=== PATIENT | male | born 1970 | race Caucasian/White ===

== ENCOUNTER 2023-09-14 10:07 | Outpatient (AMB) | payer OTHER, SELFPAY ==
--- NOTE | 2023-09-14 11:45 | A.OFFVIS_ITS ---
Intake Intake Visit Reasons: hx prostate cancer/transfer of care Intake Note: NEW Patient presents today to established treatment for history of prostate cancer Meds- None Allergies to Antibiotic- No Known Allergies Blood Thinner- None Post Void Residual:17 Quoter Required: No Accompanied by: Self / Same As Patient Allergies Beta-Blockers (Beta-Adrenergic Bloc [BETA-BLOCKERS (BETA-ADRENERGIC BLOC] Adverse Reaction (Unknown, Verified 09/14/23 11:57) STOPPED MY HEART beta fercho Allergy (Unknown, Uncoded 09/14/23 11:57) Unknown HPI HPI Comments History of Present Illness Details John is a 53-year-old male who was previously diagnosed with prostate cancer in February 2022 by [facility]. He is transferring his care to [facility]. He states he has a family history of prostate cancer in his father. I reviewed urology notes from the [facility] u[facility]. The patient had a PSA of 3.3 initially, the last PSA noted was 10/20/2022---3.8 ng/mL. The patient had an MRI of the prostate 01/07/2022. I have reviewed the report.-impression suspicious 1 cm lesion within right posterior medial peripheral zone at the mid gland apex PI-RADS 2.1, category for high clinically significant cancer is likely to be present prostate volume 23 mL He had MRI fusion guided prostate biopsy on 03/13/2022: Pathology results reviewed--prostate left medial apex [place] score 6 3+ 6, grade group 1 tumor involves 3% of tissue, prostate target right posterior apex adenocarcinoma [place] score 6 3+3 grade group 1, tumor involves 5% of tissue submitted. Prostate right medial base right medial mid right medial apex right lateral apex right lateral mid right lateral apex left medial base left medial mid core biopsies benign prostate tissue. Prostate, left lateral base left lateral mid left lateral apex--benign prostate tissue. He was placed on active surveillance. The patient states he did not have a follow-up scheduled. Last PSA noted was 10/20/2022 3.8 ng/mL Plan discussed to repeat MRI and PSA. The patient was also evaluated for balanitis and phimosis and underwent circumcision on 12/01/2022-the pathology was documented to be consistent with patchy superficial lymphocytic inflammatory infiltrates with slight fibrosis. 72 minutes spent including review of ur ology notes in detail due to documentation prostate cancer that were sent from [facility] and in review of records pertaining to this visit and including [id number] discussion with the patient and documentation of this visit. 09/14/2023-Plan PSA today MRI prostate PFSH Medical History (Updated 09/29/23 @ 09:41 by EVE Archuleta) Phimosis of penis Type 2 diabetes mellitus Sleep apnea Major depression Heart disease Anxiety Hx of essential hypertension Male circumcision Surgical History (Updated 09/29/23 @ 09:37 by EVE Archuleta) History of lumbar laminectomy Hx of arthroscopic knee surgery Hx of heart surgery Hx of cardiac cath Family History (Updated 09/29/23 @ 09:43 by EVE Archuleta) Father Family history of prostate cancer Mother Cancer Family history of prostate cancer Social History (Updated 09/29/23 @ 09:39 by EVE Archuleta) Alcohol intake: current Alcohol intake frequency: does not drink Patient Tobacco Use Status: Never used Tobacco Review of Systems Const All systems reviewed & are unremarkable except as noted in HPI and below Reports no additional complaints Eyes Reports no additional complaints ENT Reports no additional complaints Card Denies dyspnea Resp Denies cough and Denies dyspnea GI Reports no additional complaints Musc Reports no additional complaints Skin/Breast Denies rash and Denies unusual bruising Neuro Reports no additional complaints Psych Reports no additional complaints Endo Reports no additional complaints Joby/Lymph Reports no additional complaints Aller/Immun Reports no additional complaints Physical Exam Const General: healthy appearing, no acute distress and well developed Orientation/consciousness: patient oriented x3 HEENT Head: Yes normocephalic and Yes atraumatic Eyes Conjunctivae: conjunctivae normal Neck Neck: Yes normal visual inspection Chest Chest palpation & inspection: normal inspection of the chest Resp Effort & Inspection: normal respiratory effort Cardio Rate: regular rate GI Inspection: Yes normal to inspection Skin General skin exam: no rashes or lesions noted Neuro General: patient oriented x3 Extrem General: No pedal edema Psych Appearance: grossly normal Affect: normal affect Results AMB Urinalysis, Automated UA Leukoctes 0 Bisi/uL Last Edit by Lashay Hutson PHARMACOVIGILANCE SCIENTIST on 09/14/23 12 :00 UA Nitrite Negative Last Edit by Lashay Hutson, [facility] on 09/14/23 12: 00 UA Urobilinogen 0.2 mg/dL Last Edit by Lashay Hutson PHARMACOVIGILANCE SCIENTIST on 4 12:00 UA Protein 0 mg/dL Last Edit by Lashay Hutson, [facility] on 09/14/23 12:00 UA pH 5.5 Last Edit by Lashay Hutson, [facility] on 09/14/23 12:00 UA Blood 0 Jose/uL Last Edit by Lashay Hutson, [facility] on 09/14/23 12:00 UA Specific [place] 1.020 Last Edit by Lashay Hutson, [employer]ILANCE SCIENTIST on 12:00 UA Ketone Negative Last Edit by Lashay Hutson [facility] on 09/14/23 12:0 0 UA Bilirubin 0 mg/dL Last Edit by Lashay Hutson [facility] on 09/14/23 12: 00 UA Glucose 1000 mg/dL Last Edit by Lashay Hutson [facility] on 09/14/23 12 :00 Results Reviewed Results Reviewed: Laboratory Last Values Urine pH (Auto) 5.5 09/14/23 11:59 Specific [place] (Auto) 1.020 09/14/23 11:59 Urine Protein (Auto) 0 mg/dL 09/14/23 11:59 Glucose (UA)(Auto) 1000 mg/dL 09/14/23 11:59 Urine Ketones (Auto) Negative 09/14/23 11:59 Urine Blood (Auto) 0 Jose/uL 09/14/23 11:59 Urine Nitrite (Auto) Negative 09/14/23 11:59 Urine Bilirubin (Auto) 0 mg/dL 09/14/23 11:59 Urine Urobilinogen (Auto) 0.2 mg/dL 09/14/23 11:59 Leukocyte Esterase (Auto) 0 Bisi/uL 09/14/23 11:59 Assessment & Plan Assessment & Plan (1) Prostate cancer genetic susceptibility: Code(s): Z15.03 - Genetic susceptibility to malignant neoplasm of prostate (2) Family history of prostate cancer: Code(s): Z80.42 - Family history of malignant neoplasm of prostate Plan PSA today MRI prostate Orders: Orders AMB Urinalysis Automated 09/14/23 R33.9 - Retention of urine, unspecified AMB Post Void Residual by ultrasound 09/14/23 R33.9 - Retention of urine, unspecified PSA,Total (Free>4and<10) 09/14/23 Z15.03 - Genetic susceptibility to malignant neoplasm of prostate MR pelvis w con 09/14/23 Z80.42 - Family history of malignant neoplasm of prostate, Z15.03 - Genetic susceptibility to malignant neoplasm of prostate Patient Instructions: The patient had an opportunity to ask questions regarding treatment plan. All questions were answered. Imaging, Laboratory studies and physical exam results were discussed and reviewed in detail. No major barriers to understanding were identified. The patient expressed understanding and agreement with the above treatment plan. The patient is aware they should contact our office by phone for worsening of their current condition or the appearance of new symptoms. Compliance is encouraged with any medications and followup testing that is ordered. It is a privilege to be allowed the opportunity to participate in the urologic care of your patient. If you have any questions or concerns regarding treatment for the above conditions please do not hesitate to contact me. The office telephone contact is [phone]. This note is constructed in part using voice recognition software. While every effort has been made to ensure accuracy museum assistant errors may have been included. Yours sincerely, Tino Mckeon MD Coding Level of Care Code New Pt Level 5 (12788) Diagnoses Prostate cancer genetic susceptibility Z15.03 Family history of prostate cancer Z80.42 Time Spent (min) 72
== END 2023-09-14 12:18 | disposition home or self-care (01) ==
PROVIDERS: PCP Internal Medicine; Visit Provider Urology
DX: C61 Malignant neoplasm of prostate (principal); Z80.42 Family history of malignant neoplasm of prostate
CPT/HCPCS: 99205

== ENCOUNTER → 2023-09-14 10:07 | Outpatient (BNVA) | payer OTHER, SELFPAY | PROVIDERS: PCP Internal Medicine; Visit Provider Urology | DX: Z15.03 Genetic susceptibility to malignant neoplasm of prostate (principal); C61 Malignant neoplasm of prostate; Z80.42 Family history of malignant neoplasm of prostate | CPT/HCPCS: 81003; 99202 ==

== ENCOUNTER 2023-10-29 09:10 | Outpatient (AMB) | payer OTHER, SELFPAY ==
--- NOTE | 2023-10-29 09:19 | A.OFFVIS_ITS ---
Intake Visit Reasons: 6w/MRI/PSA Intake Note: Patient presents today for a follow-up on Prostate MRI & PSA Results: Meds- None Allergies to Antibiotic- No Known Allergies Blood Thinner- None Post Void Residual: 22 mL Work Counselor Required: No Accompanied by: Family/Other Allergies Beta-Blockers (Beta-Adrenergic Bloc [BETA-BLOCKERS (BETA-ADRENERGIC BLOC] Adverse Reaction (Unknown, Verified 10/29/23 09:21) STOPPED MY HEART beta fercho Allergy (Unknown, Uncoded 10/29/23 09:21) Unknown HPI Comments Details: 10/29/2023--John is on active surveillance for diagnosis prostate cancer low volume, grade group 1. I have reviewed PSA and MRI results with the patient. MRI-10/21/2023, the 1.7 cm lesion again noted posterior lateral zone right mid gland/apex seen previously 01/07/2022 was 1.5 cm no adenopathy, capsule or seminal vesicle invasion no suspicious osseous lesions. PSA 10/02/2023--5.5 ng/mL. Plan discussed repeat MRI guided prostate biopsy. Review of chart: 09/14/2023--John is a 53-year-old male who was previously diagnosed with prostate cancer in February 2022 by [facility]. He is transferring his care to [facility]. He states he has a family history of prostate cancer in his father. I reviewed urology notes from the [facility] u[facility]. The patient had a PSA of 3.3 initially, the last PSA noted was 10/20/2022---3.8 ng/mL. The patient had an MRI of the prostate 01/07/2022. I have reviewed the report.-impression suspicious 1 cm lesion within right posterior medial peripheral zone at the mid gland apex - high clinically significant cancer is likely to be present, prostate volume 23 mL He had MRI fusion guided prostate biopsy on 03/13/2022: Pathology results reviewed--prostate left medial apex [place] score 6 3+ 6, grade group 1 tumor involves 3% of tissue, prostate target right posterior apex adenocarcinoma [place] score 6 3+3 grade group 1, tumor involves 5% of tissue submitted. Prostate right medial base right medial mid right medial apex right lateral apex right lateral mid right lateral apex left medial base left medial mid core biopsies benign prostate tissue. Prostate, left lateral base left lateral mid left lateral apex--benign prostate tissue. He was placed on active surveillance. The patient states he did not have a follow-up scheduled. Last PSA noted was 10/20/2022 3.8 ng/mL--Plan discussed to repeat MRI and PSA. The patient was also evaluated for balanitis and phimosis and underwent circumcision on 12/01/2022-the pathology was documented to be consistent with p atchy superficial lymphocytic inflammatory infiltrates with slight fibrosis. 10/29/2023-Plan Prostate cancer on Active surveillance. Discussed repeat MRI guided prostate biopsy. [facility] Medical History (Updated 09/29/23 @ 09:41 by EVE Archuleta) Phimosis of penis Type 2 diabetes mellitus Sleep apnea Major depression Heart disease Anxiety Hx of essential hypertension Male circumcision Surgical History (Updated 09/29/23 @ 09:37 by EVE Archuleta) History of lumbar laminectomy Hx of arthroscopic knee surgery Hx of heart surgery Hx of cardiac cath Family History (Updated 09/29/23 @ 09:43 by EVE Archuleta) Father Family history of prostate cancer Mother Cancer Family history of prostate cancer Social History (Updated 09/29/23 @ 09:39 by EVE Archuleta) Alcohol intake: current Alcohol intake frequency: does not drink Patient Tobacco Use Status: Never used Tobacco Review of Systems Const All systems reviewed & are unremarkable except as noted in HPI and below Reports no additional complaints Eyes Reports no additional complaints ENT Reports no additional complaints Card Reports no additional complaints Resp Reports no additional complaints GI Reports no additional complaints Reports as per HPI Musc Reports no additional complaints Skin/Breast Reports system reviewed and no additional complaints, except as documented Neuro Reports no additional complaints Psych Reports no additional complaints Endo Reports no additional complaints Joby/Lymph Reports no additional complaints Aller/Immun Reports no additional complaints Office Procedures Post Void Residual Post Residual Void Post Void Residual (PVR): 22 [id number] Void Residual by ultrasound Results AMB Urinalysis, Automated UA Leukoctes 0 Bisi/uL Last Edit by Leroy Hernandez Roshni on 10/29/23 09:34 UA Nitrite Negative Last Edit by Leroy Hernandez COUNTS INCLUDE 234 BEDS AT THE [facility] on 10/29/23 09:34 UA Urobilinogen 0.2 mg/dL Last Edit by Leroy Hernandez A on 10/29/23 09:3 4 UA Protein 0 mg/dL Last Edit by Leroy Hernandez COUNTS INCLUDE 234 BEDS AT THE [facility] on 10/29/23 09:34 UA pH 6.0 Last Edit by Leroy Hernandez A on 10/29/23 09:34 UA Blood 0 Jose/uL Last Edit by Leroy Hernandez COUNTS INCLUDE 234 BEDS AT THE [facility] on 10/29/23 09:34 UA Specific [place] 1.015 Last Edit by Leroy Hernandez COUNTS INCLUDE 234 BEDS AT THE [facility] on 10/29/23 09: 34 UA Ketone Negative Last Edit by Leroy Hernandez COUNTS INCLUDE 234 BEDS AT THE [facility] on 10/29/23 09:34 UA Bilirubin 0 mg/dL Last Edit by Leroy Hernandez COUNTS INCLUDE 234 BEDS AT THE [facility] on 10/29/23 09:34 UA Glucose 1000 mg/dL Last Edit by Leroy Hernandez COUNTS INCLUDE 234 BEDS AT THE [facility] on 10/29/23 09:34 3+ Leroy Hernandez 10/29/23 09:34 Results Reviewed Results Reviewed: Laboratory Last Values Urine pH (Auto) 6.0 10/29/23 09:21 Specific [place] (Auto) 1.015 10/29/23 09:21 Urine Protein (Auto) 0 mg/dL 10/29/23 09:21 Glucose (UA)(Auto) 1000 mg/dL 10/29/23 09:21 Urine Ketones (Auto) Negative 10/29/23 09:21 Urine Blood (Auto) 0 Jose/uL 10/29/23 09:21 Urine Nitrite (Auto) Negative 10/29/23 09:21 Urine Bilirubin (Auto) 0 mg/dL 10/29/23 09:21 Urine Urobilinogen (Auto) 0.2 mg/dL 10/29/23 09:21 Leukocyte Esterase (Auto) 0 Bisi/uL 10/29/23 09:21 Assessment & Plan Assessment & Plan (1) Prostate cancer genetic susceptibility: Code(s): Z15.03 - Genetic susceptibility to malignant neoplasm of prostate Category: Medical (2) Family history of prostate cancer: Code(s): Z80.42 - Family history of malignant neoplasm of prostate Category: Medical Plan Prostate cancer on Active surveillance. Discussed repeat MRI guided prostate biopsy. Orders: Orders AMB Urinalysis Automated 10/29/23 Z13.9 - Encounter for screening, unspecified AMB Post Void Residual by ultrasound 10/29/23 N39.8 - Other specified disorders of urinary system Patient Instructions: The patient had an opportunity to ask questions regarding treatment plan. The patient expressed understanding and agreement with the above treatment plan. The patient is aware they should contact our office by phone for worsening of their current condition or the appearance of new symptoms. Compliance is encouraged with any medications and followup testing that is ordered. It is a privilege to be allowed the opportunity to participate in the urologic care of your patient. If you have any questions or concerns regarding treatment for the above conditions please do not hesitate to contact me. The office telephone contact is [phone]. This note is constructed in part using voice recognition software. While every effort has been made to ensure accuracy planning and analysis manager errors may have been included. Yours sincerely, Tino Mckeon MD Coding Level of Care Code Est Pt Level 4 (93655) Diagnoses Prostate cancer genetic susceptibility Z15.03 Family history of prostate cancer Z80.42 CPT Codes Post Residual Void - PVR CPT Code: 63209-[id number] Void Residual by ultrasound ([id number])
== END 2023-10-29 10:02 | disposition home or self-care (01) ==
PROVIDERS: PCP Internal Medicine; Visit Provider Urology
DX: Z15.03 Genetic susceptibility to malignant neoplasm of prostate (principal); Z80.42 Family history of malignant neoplasm of prostate
CPT/HCPCS: 99214

== ENCOUNTER → 2023-10-29 09:10 | Outpatient (BNVA) | payer OTHER, SELFPAY | PROVIDERS: PCP Internal Medicine; Visit Provider Urology | DX: C61 Malignant neoplasm of prostate (principal); Z80.42 Family history of malignant neoplasm of prostate; Z15.03 Genetic susceptibility to malignant neoplasm of prostate | CPT/HCPCS: 51798; 81003; 99212 ==

== ENCOUNTER 2024-02-08 06:44 | Day surgery (SDC) | payer OTHER, SELFPAY ==
[2024-02-08 07:28] VITALS: BP 146/96; PULSE 107; RESP 19; TEMP 36.3; O2SAT 96
[2024-02-08 08:21] LABS: Glucose, Whole Blood 308 mg/dL (60-115)
--- NOTE | 2024-02-08 08:25 | P.CONAN_ITS ---
[facility] Active Problems Active Problems: All Active Problems Family history of prostate cancer (Acute) Prostate cancer genetic susceptibility (Acute) Past Medical History Medical History (Updated 09/29/23 @ 09:41 by EVE Archuleta) Phimosis of penis Type 2 diabetes mellitus Sleep apnea Major depression Heart disease Anxiety Hx of essential hypertension Male circumcision Family History Family History (Updated 09/29/23 @ 09:43 by EVE Archuleta) Father Family history of prostate cancer Mother Cancer Family history of prostate cancer Family history of problems with anesthesia: No Surgical History Surgical History (Updated 09/29/23 @ 09:37 by EVE Archuleta) History of lumbar laminectomy Hx of arthroscopic knee surgery Hx of heart surgery Hx of cardiac cath History of Problems with Anesthesia: No Social History Social History (Updated 09/29/23 @ 09:39 by EVE Archuleta) Alcohol intake: current Alcohol intake frequency: does not drink Patient Tobacco Use Status: Never used Tobacco Are you DNR?: No Advance Directives: No Advance Directives Information Provided: Yes Meds Allergies Allergy/AdvReac Type Severity Reaction Status Date / Time Beta-Blockers AdvReac Unknown STOPPED Verified 10/29/23 09:21 (Beta-Adrenergic Bloc MY HEART [BETA-BLOCKERS (BETA-ADRENERGIC BLOC] beta fercho Allergy Unknown Unknown Uncoded 10/29/23 09:21 Active Medications: Current Medications Levofloxacin (Levaquin) 500 mg in 100 mls @ 100 mls/hr IV PREOP ONE Stop: 02/08/24 08:38 Home Medications ?Medication ?Instructions ?Recorded ?Confirmed ?Last Taken ?Type atorvastatin 80 mg tablet 80 mg PO DAILY 09/14/23 02/08/24 Unknown History bacitracin zinc 500 unit/gram topical DAILY 09/14/23 Unknown History topical ointment clopidogrel 75 mg tablet 75 mg PO DAILY 09/14/23 02/08/24 02/05/24 History dulaglutide 1.5 mg/0.5 mL 5 mg subcut Q7D 09/14/23 02/08/24 01/26/24 History subcutaneous pen injector (Trulicity) ibuprofen 600 mg tablet 600 mg PO BID PRN Pain 09/14/23 02/08/24 Unknown History losartan 25 mg tablet 25 mg PO DAILY 09/14/23 02/08/24 Unknown History metformin 500 mg tablet 1,000 mg PO BID 09/14/23 02/08/24 Unknown History oxycodone-acetaminophen 5 mg-325 1 tab PO Q6H PRN pain 09/14/23 02/08/24 Unknown History mg tablet Exam Height,Weight and Vital Signs: Height 5 ft 6 in Weight 84.368 kg Last Vital Signs Temp 97.4 F 02/08/24 07:28 Pulse 107 H 02/08/24 07:28 Resp 19 02/08/24 07:28 BP 146/96 H 02/08/24 07:28 Pulse Ox 96 02/08/24 07:28 O2 Del Method Room Air 02/08/24 07:28 Pertinent Lab Results Pertinent Lab Results: Laboratory Tests 02/08/24 08:14 POC Glucose 308 H Airway Mallampati Class: III TM Dist: >3cm Neck ROM: Full Assessment and Plan Assessment Anesthesia Assessment: Anesthesia Plan Discussed Final Anesthetic Review Family History of Problems with Anesthesia: No History of Problems with Anesthesia: No NPO: Yes ASA Class: II Final Preanesthetic Review: No Changes in Pt Med Stat, Meds/Allgs Chart Reviewed, Consent Obtained/Reviewed and Anes Risks/Benef Reviewed Patient Risk: Low Procedure Risk: Low Anesthetic Plan Anesthetic Plan: TIVA Disposition: Standard PACU
[2024-02-08] MEDS: Insulin Lispro 100 UNIT/ML 3 ML VIAL SUBCUT (08:31)
--- NOTE | 2024-02-08 08:56 | MHC.SHP ---
Pre-Procedural Eval Section A - 24 Hr Update-Section A only Date of Service: 02/08/24 The patient is an INPATIENT: No Changes since office visit: No Cold of Flu in the past 2 weeks, No New Medical Problems, No Changes in Medication and No Patient answered all questions The patient has been examined within 24 hours of the surgical procedure. The History & Physical has been completed within 30 days and I have reviewed it.: Yes Section B - Complete if H&P > 30 days Chief Complaint: Family history of malignant neoplasm of prostate Details of Present Illness: Targetted MRI US prostate biopsy Relevant Social History: None Present Medications: see Short Stay Collaborative assessment Medical History: No relevant PMH History of Previous Operations: No relevant previous surgery Allergies: Allergies Allergy/AdvReac Type Severity Reaction Status Date / Time Beta-Blockers AdvReac Unknown STOPPED Verified 10/29/23 09:21 (Beta-Adrenergic Bloc MY HEART [BETA-BLOCKERS (BETA-ADRENERGIC BLOC] beta fercho Allergy Unknown Unknown Uncoded 10/29/23 09:21 Review of Systems Sugical H&P ROS: Negative: Constitution, Cardiovascular, Respiratory, Neurological, Psychiatric, Hem-Onc, Allergic/Immunologic, Gastrointestinal, Genitourinary, Musculoskeletal, Integumentary, Endocrine and Eyes/Ears/Nose/Throat Exam Surgical H&P Exam: Normal: HEENT, Normal: Heart, Normal: Lungs, Normal: Extremities, Normal: Abdomen, Normal: Skin and Normal: Neurological Plan Diagnosis/Plan: Unchanged I have reviewed the history and physical and performed a pertinent physical examination on my patient. No changes have occurred unless specified. Time Spent With Patient Time: Total time managing care of this patient today ____ minutes.
[2024-02-08 09:00] VITALS: BP 148/85; PULSE 54; RESP 18; TEMP 36.1; O2SAT 100
--- NOTE | 2024-02-08 09:46 | W.PM.OPN ---
Operative Note Operative Note Date of Service: 02/08/24 Narrative: Preoperative diagnosis: Prostate Cancer Postoperative diagnosis: Prostate Cancer Procedure: 1. transrectal ultrasound-guided pudendal nerve block 2. MRI-US fusion image registration performed 3. transperineal ultrasound-guided prostate biopsy 16 core including targets Surgeon: Dr. Mick Bernardo Anesthetic: Sedation plus local Indications for procedure: Prostate Cancer - John is on active surveillance for diagnosis prostate cancer low volume, grade group 1. MRI-10/21/2023, the 1.7 cm lesion again noted posterior lateral zone right mid gland/apex seen previously 01/07/2022 was 1.5 cm no adenopathy, capsule or seminal vesicle invasion no suspicious osseous lesions. PSA 10/02/2023--5.5 ng/mL. Procedure: After informed consent was verified, the patient was brought into the procedure area. Patient identity confirmed. Perioperative antibiotics confirmed. Safety pause time out performed. Anesthesia performed per protocol. Scrotum taped out of operative area. Iodine prep used. Perineal injection of local anesthetic. Digital guided prostate pudendal nerve block performed with 10 cc of 1% lidocaine. 5cc each side. Combination 10cc iodine with 50cc gel was mixed and placed in the rectum. Ultrasound probe was placed per rectum. Ultrasound probe stabilized on a prostate stepper with attached grid. [employer] software and hardware platform used for US image acquisition, US 3D model creation and MRI-US fusion image overlay. Ultrasound placement was made with external grid calibration for height and prostate diameter in both the transverse and longitudinal planes. Grid A-C covering right prostate and c-F covering left prostate. Numbers 1.0-2.5 covering posterior prostate and 2.5-4.0 covering anterior prostate. Once grid calibration was confirmed prostate ultrasound data acquisition was performed in the transverse fashion. The US images were registered to create model boundaries. A three dimensional ultrasound model was created using [employer] software. The model was reviewed against acquired US images. The planned needle targeting, based on prior acquisition of MRI imaging, was overlaid on the ultrasound images and targets confirmed through ultrasound review. Adjustments were then made between real time and projected model targeting locations. Based on pre-planning evaluation 16 targets had been identified. These included multiple targets of right apical lesion - identified lesion/s. 2 estra biopsies taken in region of interest. He tolerated the procedure well. Was transferred to stable condition in the PACU. Printed instructions regarding antibiotic use and common side effects such as low-grade temperature, potential infection and bleeding were given Pathology: 18 core prostate biopsy CPT 40810 Modifier 22 for complexity of procedure execution (Perineal prostate biopsy) CPT 79880 US/MRI target fusion and manipulation in realtime
[2024-02-08 09:50] VITALS: BP 125/84; PULSE 98; RESP 16; TEMP 36.5; O2SAT 96
[2024-02-08 10:00] LABS: Glucose, Whole Blood 294 mg/dL (60-115)
[2024-02-08 10:05] VITALS: BP 134/93; PULSE 93; RESP 16; TEMP 36.5; O2SAT 97
== END 2024-02-08 10:32 | disposition home or self-care (01) ==
PROVIDERS: PCP Internal Medicine; Visit Provider Urology
PROC: (CPT 55700; principal; 2024-02-08 08:40)
DX: C61 Malignant neoplasm of prostate (principal); Z80.42 Family history of malignant neoplasm of prostate; Z15.03 Genetic susceptibility to malignant neoplasm of prostate; I10 Essential (primary) hypertension; I51.9 Heart disease, unspecified; E11.9 Type 2 diabetes mellitus without complications; G47.30 Sleep apnea, unspecified; F32.A Depression, unspecified; F41.9 Anxiety disorder, unspecified; N47.1 Phimosis; Z79.84 Long term (current) use of oral hypoglycemic drugs; Z79.85 Long-term (current) use of injectable non-insulin antidiabetic drugs; Z79.899 Other long term (current) drug therapy; Z88.8 Allergy status to other drugs, medicaments and biological substances; Z98.890 Other specified postprocedural states
CPT/HCPCS: 55706; 82947; 88305; 88344; J1100; J1956; J2250; J2405; J2704; J2795; J3010

== ENCOUNTER → 2024-02-08 06:44 | Outpatient (BNV) | payer OTHER, SELFPAY | PROVIDERS: PCP Internal Medicine; Visit Provider Urology | DX: C61 Malignant neoplasm of prostate (principal) | CPT/HCPCS: 55706 ==

== ENCOUNTER 2024-02-22 14:01 | Outpatient (AMB) | payer OTHER, SELFPAY ==
--- NOTE | 2024-02-22 13:48 | A.OFFVIS_ITS ---
Intake Visit Reasons: Prostate biopsy results Intake Note: Patient presents today for prostate bioosy results Meds- None Allergies to Antibiotic- none Blood Thinner- None Supplier Relationship Director Required: No Accompanied by: Family/Other Allergies Beta-Blockers (Beta-Adrenergic Bloc [BETA-BLOCKERS (BETA-ADRENERGIC BLOC] Adverse Reaction (Unknown, Verified 02/22/24 14:07) STOPPED MY HEART beta fercho Allergy (Unknown, Uncoded 02/22/24 14:07) Unknown Medication List - Last Reconciled 02/22/24 by Tino Mckeon MD atorvastatin 80 mg PO DAILY bacitracin zinc topical DAILY clopidogrel 75 mg PO DAILY dulaglutide (Trulicity) 5 mg subcut Q7D ibuprofen 600 mg PO BID PRN losartan 25 mg PO DAILY metformin 1,000 mg PO BID oxycodone-acetaminophen 5-325 mg 1 tab PO Q6H PRN HPI Comments Details: 02/22/24--John had MRI guided biopsies by Dr. Bernardo on 02/08/2024, targeted biopsies came back Darshan 6 --3+3; grade group 1. The patient is interested in targeted cryotherapy. Will schedule with Dr. Bernardo. Review of chart: 10/29/2023--John is on active surveillance for diagnosis prostate cancer low volume, grade group 1. I have reviewed PSA and MRI results with the patient. MRI-10/21/2023, the 1.7 cm lesion again noted posterior lateral zone right mid gland/apex seen previously 01/07/2022 was 1.5 cm no adenopathy, capsule or seminal vesicle invasion no suspicious osseous lesions. PSA 10/02/2023--5.5 ng/mL. Plan discussed repeat MRI guided prostate biopsy. 09/14/2023--John is a 53-year-old male who was previously diagnosed with prostate cancer in February 2022 by [facility] urology. He is transferring his care to [facility]. He states he has a family history of prostate cancer in his father. I reviewed urology notes from the [facility] urology. The patient had a PSA of 3.3 initially, the last PSA noted was 10/20/2022---3.8 ng/mL. The patient had an MRI of the prostate 01/07/2022. I have reviewed the report.-impression suspicious 1 cm lesion within right posterior medial peripheral zone at the mid gland apex - high clinically significant cancer is likely to be present, prostate volume 23 mL He had MRI fusion guided prostate biopsy on 03/13/2022: Pathology results reviewed--prostate left medial apex Saint Lucas score 6 3+ 6, grade group 1 tumor involves 3% of tissue, prostate target right posterior apex adenocarcinoma Darshan score 6 3+3 grade group 1, tumor involves 5% of tissue submitted. Prostate right medial base right medial mid right medial apex right lateral apex right lateral mid right lateral apex left medial base left medial mid core biopsies benign prostate tissue. Prostate, left lateral base left lateral mid left lateral apex--benign prostate tissue. He was placed on active surveillance. The patient states he did not have a follow-up scheduled. Last PSA noted was 10/20/2022 3.8 ng/mL--Plan discussed to repeat MRI and PSA. The patient was also evaluated for balanitis and phimosis and underwent circumcision on 12/01/2022-the pathology was documented to be consistent with patchy superficial lymphocytic inflammatory infiltrates with slight fibrosis. [facility] Medical History Phimosis of penis Type 2 diabetes mellitus Sleep apnea Major depression Heart disease Anxiety Hx of essential hypertension Male circumcision Surgical History History of lumbar laminectomy Hx of arthroscopic knee surgery Hx of heart surgery Hx of cardiac cath Family History Father Family history of prostate cancer Mother Cancer Family history of prostate cancer Social History Alcohol intake: current Alcohol intake frequency: does not drink Patient Tobacco Use Status: Never used Tobacco Results AMB Urinalysis, Automated UA Leukoctes 0 Bisi/uL Last Edit by JAGDISH Bruce on 02/22/24 14:20 UA Nitrite Negative Last Edit by Asa Morales, [facility] on 02/22/24 14:20 UA Urobilinogen 0.2 mg/dL Last Edit by Asa Morales, [facility] on 02/22/24 14:2 0 UA Protein 0 mg/dL Last Edit by Asa Morales, [facility] on 02/22/24 14:20 UA pH 5.5 Last Edit by Asa Morales, [facility] on 02/22/24 14:20 UA Blood 0 Joes/uL Last Edit by Asa Morales, [facility] on 02/22/24 14:20 UA Specific [place] 1.015 Last Edit by Asa Morales, [facility] on 02/22/24 14: 20 UA Ketone Negative Last Edit by Asa Morales, [facility] on 02/22/24 14:20 UA Bilirubin 0 mg/dL Last Edit by Asa Morales [facility] on 02/22/24 14:20 UA Glucose 1000 mg/dL Last Edit by Asa Morales [facility] on 02/22/24 14:20 Results Reviewed Results Reviewed: Laboratory Last Values Urine pH (Auto) 5.5 02/22/24 14:19 Specific [place] (Auto) 1.015 02/22/24 14:19 Urine Protein (Auto) 0 mg/dL 02/22/24 14:19 Glucose (UA)(Auto) 1000 mg/dL 02/22/24 14:19 Urine Ketones (Auto) Negative 02/22/24 14:19 Urine Blood (Auto) 0 Jose/uL 02/22/24 14:19 Urine Nitrite (Auto) Negative 02/22/24 14:19 Urine Bilirubin (Auto) 0 mg/dL 02/22/24 14:19 Urine Urobilinogen (Auto) 0.2 mg/dL 02/22/24 14:19 Leukocyte Esterase (Auto) 0 Bisi/uL 02/22/24 14:19 Collected: 02/08/24 Location: [facility] Received: 02/08/24 Diagnosis Prostate, needle core biopsies: A. e 2.5: Prostatic adenocarcinoma, Saint Lucas score 3+3=6 (grade group 1) involving 5% of the tissue. B. E 3.5: Hyperkeratotic squamous epithelium/skin and skeletal muscle; no prostatic epithelium identified. C. E 3.0: Benign prostatic tissue; negative for malignancy. D. E 2.0: Tissue did not survive processing. E. d 3.5: Hyperkeratotic squamous epithelium/skin and skeletal muscle; no prostatic epithelium identified. F. D 1.5: Benign prostatic tissue; negative for malignancy. G. c 4.0: Benign prostatic tissue; negative for malignancy. H. c 3.0: Benign prostatic tissue; negative for malignancy. I. c 2.0: Benign prostatic tissue; negative for malignancy. J. C 3.5: Fibromuscular tissue only; no prostatic epithelium identified. K. C 3.0: Benign prostatic tissue; negative for malignancy. L. C 2.5: Fibromuscular tissue only; no prostatic epithelium identified. M. C 2.0: Fibromuscular tissue only; no prostatic epithelium identified. N. C 1.5: Benign prostatic tissue; negative for malignancy. O. b 2.5: Prostatic adenocarcinoma, Saint Lucas score 3+3=6 (grade group 1) involving 50% of the tissue. P. b 2.0: Fibromuscular tissue only; no prostatic epithelium identified. Patient: John Marks Age/Sex: 53/M [facility]#: [id number] MR#: [id number] Page 1 of 4 Assessment & Plan Assessment & Plan (1) Prostate cancer: Code(s): C61 - Malignant neoplasm of prostate Category: Medical Plan Schedule targeted cryoablation with Dr. Bernardo Orders: Orders PSA,Total (Free>4and<10) 02/22/24 Z12.5 - Encounter for screening for malignant neoplasm of prostate AMB Urinalysis Automated 02/22/24 Z13.9 - Encounter for screening, unspecified Patient Instructions: The patient had an opportunity to ask questions regarding treatment plan. The patient expressed understanding and agreement with the above treatment plan. The patient is aware they should contact our office by phone for worsening of their current condition or the appearance of new symptoms. Compliance is encouraged with any medications and followup testing that is ordered. It is a privilege to be allowed the opportunity to participate in the urologic care of your patient. If you have any questions or concerns regarding treatment for the above conditions please do not hesitate to contact me. The office telephone contact is [phone]. This note is constructed in part using voice recognition software. While every effort has been made to ensure accuracy nursing administrator errors may have been included. Yours sincerely, Tino Mckeon MD Coding Level of Care Code Est Pt Level 4 (11047) Diagnoses Prostate cancer C61
== END 2024-02-22 14:37 | disposition home or self-care (01) ==
PROVIDERS: PCP Internal Medicine; Visit Provider Urology
DX: C61 Malignant neoplasm of prostate (principal)
CPT/HCPCS: 99214

== ENCOUNTER → 2024-02-22 14:01 | Outpatient (BNVA) | payer OTHER, SELFPAY | PROVIDERS: PCP Internal Medicine; Visit Provider Urology | DX: C61 Malignant neoplasm of prostate (principal); Z12.5 Encounter for screening for malignant neoplasm of prostate | CPT/HCPCS: 81003; 99212 ==

== ENCOUNTER 2024-04-25 08:10 | Day surgery (SDC) | payer OTHER, SELFPAY ==
--- NOTE | 2024-04-22 12:35 | HO.ANESPROP2 ---
Documented by User: Shelby Mckeon NP 04/22/24 13:26 HPI - Anesthesia Eval Consult details Narrative: 53yo M for Cryosugical Ablation Prostate s/p prostate needle bx 01/2024 with [facility]. Optimized for prostate surgery per 01/2024 office visit CAD s/p NSTEMI 2016 Repeat cath 2022 without change from previous. Plavix for CAD, ok to hold per cardiology Anesthesia Pre-Procedure Meds Is the patient on any of the following meds?: GLP1/DPP4 PMFSH Active Problems Active Problems: All Active Problems Screening PSA (prostate specific antigen) (Acute) Erectile dysfunction (Acute) Low testosterone (Acute) Prostate cancer (Acute) Phimosis of penis (Acute) Family history of prostate cancer (Acute) Prostate cancer genetic susceptibility (Acute) Past Medical History Medical History Phimosis of penis Type 2 diabetes mellitus Sleep apnea Major depression Heart disease Anxiety Hx of essential hypertension Male circumcision Family History Family History Father Family history of prostate cancer Mother Cancer Family history of prostate cancer Family history of problems with anesthesia: No Surgical History Surgical History History of lumbar laminectomy Hx of arthroscopic knee surgery Hx of heart surgery Hx of cardiac cath History of Problems with Anesthesia: No Social History Social History Are you a primary women's health care nurse practitioner to a significant other at home: No Do you presently have visiting nurse or other home services: No Alcohol intake: current Alcohol intake frequency: does not drink Patient Tobacco Use Status: Never used Tobacco Have you been hit, kicked, punched, or otherwise hurt by someone within the past year? If so, by whom?: No Are you DNR?: No Advance Directives: No Advance Directives Information Provided: Yes Recently lost weight without trying: No Nutrition Risks: No Nutritional Risk Meds Allergies Allergy/AdvReac Type Severity Reaction Status Date / Time Beta-Blockers AdvReac Unknown STOPPED Verified 04/25/24 08:47 (Beta-Adrenergic Bloc MY HEART [BETA-BLOCKERS (BETA-ADRENERGIC BLOC] Home Medications ?Medication ?Instructions ?Recorded ?Confirmed ?Last Taken ?Type atorvastatin 80 mg tablet 80 mg PO DAILY 09/14/23 04/25/24 Unknown History bacitracin zinc 500 unit/gram topical DAILY 09/14/23 02/22/24 Unknown History topical ointment clopidogrel 75 mg tablet 75 mg PO DAILY 09/14/23 04/25/24 04/18/24 History dulaglutide 1.5 mg/0.5 mL 5 mg subcut Q7D 09/14/23 04/25/24 04/17/24 History subcutaneous pen injector (Trulicity) ibuprofen 600 mg tablet 600 mg PO BID PRN Pain 09/14/23 04/25/24 Unknown History losartan 25 mg tablet 25 mg PO DAILY 09/14/23 04/25/24 Unknown History metformin 500 mg tablet 1,000 mg PO BID 09/14/23 04/25/24 Unknown History oxycodone-acetaminophen 5 mg-325 1 tab PO Q6H PRN pain 09/14/23 04/25/24 Unknown History mg tablet Exam Pertinent Lab Results Pertinent Lab Results: CBC, BMP 12/2023 from outside facility WNL Elevated A1C Narrative Narrative: EKG 01/2024 SA Septal infarct Assessment and Plan Assessment Anesthesia Assessment: Chart Reviewed Final Anesthetic Review Family History of Problems with Anesthesia: No History of Problems with Anesthesia: No Documented by User: So Natarajan MD 04/25/24 10:41 [facility] Past Medical History Medical History Phimosis of penis Type 2 diabetes mellitus Sleep apnea Major depression Heart disease Anxiety Hx of essential hypertension Male circumcision Family History Family History Father Family history of prostate cancer Mother Cancer Family history of prostate cancer Surgical History Surgical History History of lumbar laminectomy Hx of arthroscopic knee surgery Hx of heart surgery Hx of cardiac cath Social History Social History Are you a primary women's health care nurse practitioner to a significant other at home: No Do you presently have visiting nurse or other home services: No Alcohol intake: current Alcohol intake frequency: does not drink Patient Tobacco Use Status: Never used Tobacco Have you been hit, kicked, punched, or otherwise hurt by someone within the past year? If so, by whom?: No Are you DNR?: No Advance Directives: No Advance Directives Information Provided: Yes Recently lost weight without trying: No Nutrition Risks: No Nutritional Risk Meds Allergies Allergy/AdvReac Type Severity Reaction Status Date / Time Beta-Blockers AdvReac Unknown STOPPED Verified 04/25/24 08:47 (Beta-Adrenergic Bloc MY HEART [BETA-BLOCKERS (BETA-ADRENERGIC BLOC] Home Medications ?Medication ?Instructions ?Recorded ?Confirmed ?Last Taken ?Type atorvastatin 80 mg tablet 80 mg PO DAILY 09/14/23 04/25/24 Unknown History bacitracin zinc 500 unit/gram topical DAILY 09/14/23 02/22/24 Unknown History topical ointment clopidogrel 75 mg tablet 75 mg PO DAILY 09/14/23 04/25/24 04/18/24 History dulaglutide 1.5 mg/0.5 mL 5 mg subcut Q7D 09/14/23 04/25/24 04/17/24 History subcutaneous pen injector (Trulicity) ibuprofen 600 mg tablet 600 mg PO BID PRN Pain 09/14/23 04/25/24 Unknown History losartan 25 mg tablet 25 mg PO DAILY 09/14/23 04/25/24 Unknown History metformin 500 mg tablet 1,000 mg PO BID 09/14/23 04/25/24 Unknown History oxycodone-acetaminophen 5 mg-325 1 tab PO Q6H PRN pain 09/14/23 04/25/24 Unknown History mg tablet Exam Airway Mallampati Class: II TM Dist: >3cm Neck ROM: Full Partial: Upper and Lower Heart: rrr Lungs: cta Assessment and Plan Assessment Anesthesia Assessment: Anesthesia Plan Discussed Final Anesthetic Review NPO: Yes ASA Class: III Final Preanesthetic Review: No Changes in Pt Med Stat, Meds/Allgs Chart Reviewed and Consent Obtained/Reviewed Patient Risk: Low Procedure Risk: Low Anesthetic Plan Anesthetic Plan: GA Disposition: Standard PACU
[2024-04-25] VITALS (8 sets, daily range): BP systolic 145–166; BP diastolic 99–107; PULSE 81–97; RESP 16–18; TEMP 36.1–36.7; O2SAT 96–98; BMI 29.9
[2024-04-25 08:41] LABS: Glucose, Whole Blood 249 mg/dL (60-115)
[2024-04-25] MEDS: Lactated Ringers 1,000 ML 100 ML IVCONT (08:42)
--- NOTE | 2024-04-25 08:46 | PC.NURSE ---
dr. lopez aware of POC. ok to proceed. no interventions at this time.
--- NOTE | 2024-04-25 10:43 | P.HPSUR_ITS ---
Pre-Procedural Eval Section A - 24 Hr Update-Section A only Date of Service: 04/25/24 The patient is an INPATIENT: No Changes since office visit: No Cold of Flu in the past 2 weeks, No New Medical Problems, No Changes in Medication and No Patient answered all questions The patient has been examined within 24 hours of the surgical procedure. The History & Physical has been completed within 30 days and I have reviewed it.: Yes Section B - Complete if H&P > 30 days Chief Complaint: Prostate cancer Details of Present Illness: Prostate cancer here for targeted cryotherapy in setting of diabetes Relevant Social History: None Present Medications: see Short Stay Collaborative assessment Medical History: Significant History History of Previous Operations: No relevant previous surgery Allergies: Allergies Allergy/AdvReac Type Severity Reaction Status Date / Time Beta-Blockers AdvReac Unknown STOPPED Verified 04/25/24 08:47 (Beta-Adrenergic Bloc MY HEART [BETA-BLOCKERS (BETA-ADRENERGIC BLOC] Review of Systems Sugical H&P ROS: Negative: Constitution, Cardiovascular, Respiratory, Neurological, Psychiatric, Hem-Onc, Allergic/Immunologic, Gastrointestinal, Genitourinary, Musculoskeletal, Integumentary, Endocrine and Eyes/Ears/Nose/Throat Exam Surgical H&P Exam: Normal: HEENT, Normal: Heart, Normal: Lungs, Normal: E xtremities, Normal: Abdomen, Normal: Skin and Normal: Neurological Plan Diagnosis/Plan: Unchanged I have reviewed the history and physical and performed a pertinent physical examination on my patient. No changes have occurred unless specified. Time Spent With Patient Time: Total time managing care of this patient today ____ minutes.
[2024-04-25] MEDS: levoFLOXacin 500 MG TABLET PO (10:46)
--- NOTE | 2024-04-25 12:52 | W.PM.OPN ---
Operative Note Operative Note Date of Service: 04/25/24 Narrative: Preoperative diagnosis: Prostate Cancer Postoperative diagnosis: Prostate Cancer Procedure: 1. Rangel catheter placement 1. Transrectal Ultrasound prostate 2. Creation of 3D transrectal US model with image registration and model correction including overlap of virtual targeted locations 3. Ultrasound guidance of cryotherapy needle and probe placement 4. Transperineal ultrasound-guided prostate cryotherapy Surgeon: Dr. Mick Bernardo Anesthetic: LMA Indications for procedure: Prostate Cancer Procedure: After informed consent was verified, the patient was brought into the procedure area. Patient identity confirmed. Perioperative antibiotics confirmed. Safety pause time out performed. Anesthesia performed per protocol. Scrotum taped out of operative area. Iodine prep used. 16 Fr rangel catheter placed on the field with catheter cap. Perineal injection of local anesthetic performed. Ultrasound probe was placed per rectum with adequate lubrication. Ultrasound probe stabilized on a prostate stepper with attached grid. Ultrasound placement was made with external grid calibration for height and prostate diameter in both the transverse and longitudinal planes. Grid A-c covering right prostate and D-F covering left prostate. Numbers 1.0-2.5 covering posterior prostate and 2.5-4.0 covering anterior prostate. [employer] software and hardware platform was used for Ultrasound image acquisition, ultrasound model creation, manual image registration and MRI virtual target overlay. Once grid calibration was confirmed prostate ultrasound data acquisition was performed in the stepwise transverse fashion. US prostate image registration was performed using transverse and sagittal generated images. Model boundaries were marked based off acquired images. A three dimensional ultrasound model was created using [employer] software. The model was reviewed against acquired US images. The planned lesion ice ball targets, based on prior acquisition of MRI imaging, were overlaid on the ultrasound images and targets confirmed through ultrasound review. Adjustments were then made between real time and projected model targeting locations. Based on pre-planning evaluation the prostate target cryotherapy areas were identified as follows - Left mid lateral 1.4 cm lesion, Right mid lateral 0.7 cm Cryotherapy area coverage was achieved with - double [employer] Ice Debbi needle and thermal sensor The first cryotherapy needle was advanced under real time ultrasound at the target coordinates so the tip was just visible at the base of the prostate/bladder interface. Images were reviewed to ensure adequate clearance was obtained between both the urethra, with a rangel catheter, and the location of the external urethral sphincter. Once in place the needle was quick frozen to stick the prostate to the needle. This allowed placement of the temperature monitoring probe that was placed 5mm into apical prostate tissue near the sphincter for intraprocedural monitoring. The 2nd cryotherapy needle was advanced under real-time ultrasound at the target coordinates. Cryotherapy cycling was performed as follows - Initial cryotherapy -140C for 10 mins - Active thaw 3 min followed by passive thaw 10 min - Second cryotherapy cycle -140 for 10 mins Ice ball was monitored in real time through US imaging. Clear demarcation boundary was seen with an appropriate penumbra covering the target lesion area. Temperature montioring was performed ensuring that sphincter adjacent tissue did not drop below 5C (Lowest reading was 13C) At the completion of the second cryotherapy cycle active thaw was performed for 3 min. The probe was then rotated and carefully withdrawn. Temperature probe was removed. Ultrasound probe was removed. Gentle pressure was placed on the 2 perineal needle points to retain any bleeding. He tolerated the procedure well. Was transferred to stable condition in the PACU. Printed instructions regarding antibiotic use and common side effects such as low-grade temperature, potential infection and bleeding were given CPT codes 94712 - Rangel catheter placement 03052: Transrectal ultrasound; this is a diagnostic test for evaluation of the prostate and surrounding structures, looking for abnormalities or suspicious areas worrisome for cancer 79465: 3D rendering with interpretation and reporting of computed tomography (CT), MRI, ultrasound, or other tomographic modality with image postprocessing under concurrent supervision; not requiring image postprocessing on an independent workstation - construction of 3D model with TRUS and ongoing refinement of model positioning during procedure 90972: Ultrasonic guidance for needle placement (eg, biopsy, aspiration, injection, localization device), imaging supervision and interpretation 78924 - Perineal prostate cryotherapy
[2024-04-25 13:10] LABS: Glucose, Whole Blood 263 mg/dL (60-115)
== END 2024-04-25 14:16 | disposition home or self-care (01) ==
PROVIDERS: PCP Internal Medicine; Visit Provider Urology
PROC: (CPT 55873; principal; 2024-04-25 10:30)
DX: C61 Malignant neoplasm of prostate (principal); R97.20 Elevated prostate specific antigen [PSA]; N47.1 Phimosis; E11.9 Type 2 diabetes mellitus without complications; I10 Essential (primary) hypertension; I51.9 Heart disease, unspecified; G47.30 Sleep apnea, unspecified; F32.A Depression, unspecified; F41.9 Anxiety disorder, unspecified; Z79.01 Long term (current) use of anticoagulants; Z79.1 Long term (current) use of non-steroidal anti-inflammatories (NSAID); Z79.84 Long term (current) use of oral hypoglycemic drugs; Z79.85 Long-term (current) use of injectable non-insulin antidiabetic drugs; Z79.899 Other long term (current) drug therapy; Z88.8 Allergy status to other drugs, medicaments and biological substances; Z98.890 Other specified postprocedural states
CPT/HCPCS: 55873; 55706; 51702; 82947; C2618; J2003; J2250; J2704; J3010

== ENCOUNTER → 2024-04-25 08:10 | Outpatient (BNV) | payer OTHER, SELFPAY | PROVIDERS: PCP Internal Medicine; Visit Provider Urology | DX: C61 Malignant neoplasm of prostate (principal) | CPT/HCPCS: 55873; 76376 ==

== ENCOUNTER → 2024-05-03 09:35 | Outpatient (BNVA) | payer OTHER, SELFPAY | PROVIDERS: PCP Internal Medicine; Visit Provider Urology | DX: C61 Malignant neoplasm of prostate (principal) | CPT/HCPCS: 51700; 51798 ==

== ENCOUNTER 2024-07-28 11:11 | Outpatient (AMB) | payer OTHER, SELFPAY ==
--- NOTE | 2024-07-28 11:42 | A.OFFVIS_ITS ---
Intake Visit Reasons: Prostate Cryo- follow up Intake Note: Patient is present for PROSTATE CRYO- F/U Urology Medication:BACTRIM Antibiotic Allergy:NONE Blood Thinner:NONE Sausage Maker Required: No Allergies Beta-Blockers (Beta-Adrenergic Bloc [BETA-BLOCKERS (BETA-ADRENERGIC BLOC] Adverse Reaction (Unknown, Verified 07/28/24 11:43) STOPPED MY HEART HPI Comments Details: John is a pleasant male. He is a patient of Dr. Ayala. He is seen for the following urologic conditions - prostate cancer - erectile dysfunction Here for follow-up Minimal issues with urination Reports erectile dysfunction with difficulty maintaining erection Trial daily tadalafil 10 mg with three-month follow-up and repeat PSA Prostate cancer - low-grade low volume Targeted biopsy [place] 3 + 3 Prostate MRI 1.5 cm posterior lateral right mid gland 05/12 underwent cryotherapy 02/22/24--John had MRI guided biopsies by Dr. Bernardo on 02/08/2024, targeted biopsies came back [place] 6 --3+3; grade group 1. The patient is interested in targeted cryotherapy. Will schedule with Dr. Bernardo. Review of chart: 10/29/2023--John is on active surveillance for diagnosis prostate cancer low volume, grade group 1. I have reviewed PSA and MRI results with the patient. MRI-10/21/2023, the 1.7 cm lesion again noted posterior lateral zone right mid gland/apex seen previously 01/07/2022 was 1.5 cm no adenopathy, capsule or seminal vesicle invasion no suspicious osseous lesions. PSA 10/02/2023--5.5 ng/mL. Plan discussed repeat MRI guided prostate biopsy. 09/14/2023--John is a 53-year-old male who was previously diagnosed with prostate cancer in February 2022 by [facility]. He is transferring his care to [facility]. He states he has a family history of prostate cancer in his father. I reviewed urology notes from the [facility]. The patient had a PSA of 3.3 initially, the last PSA noted was 10/20/2022---3.8 ng/mL. The patient had an MRI of the prostate 01/07/2022. I have reviewed the report.-impression suspicious 1 cm lesion within right posterior medial peripheral zone at the mid gland apex - high clinically significant cancer is likely to be present, prostate volume 23 mL He had MRI fusion guided prostate biopsy on 03/13/2022: Pathology results reviewed--prostate left medial apex [place] score 6 3+ 6, grade group 1 tumor involves 3% of tissue, prostate target right posterior apex adenocarcinoma [place] score 6 3+3 grade group 1, tumor involves 5% of tissue submitted. Prostate right medial base right medial mid right medial apex right lateral apex right lateral mid right lateral apex left medial base left medial mid core biopsies benign prostate tissue. Prostate, left lateral base left lateral mid left lateral apex--benign prostate tissue. He was placed on active surveillance. The patient states he did not have a follow-up scheduled. Last PSA noted was 10/20/2022 3.8 ng/mL--Plan discussed to repeat MRI and PSA. The patient was also evaluated for balanitis and phimosis and underwent circumcision on 12/01/2022-the pathology was documented to be consistent with patchy superficial lymphocytic inflammatory infiltrates with slight fibrosis. [facility] Medical History Phimosis of penis Type 2 diabetes mellitus Sleep apnea Major depression Heart disease Anxiety Hx of essential hypertension Male circumcision Surgical History History of lumbar laminectomy Hx of arthroscopic knee surgery Hx of heart surgery Hx of cardiac cath Family History Father Family history of prostate cancer Mother Cancer Family history of prostate cancer Social History Are you a primary urgent care physician assistant to a significant other at home: No Do you presently have visiting nurse or other home services: No Alcohol intake: current Alcohol intake frequency: does not drink Patient Tobacco Use Status: Never used Tobacco Review of Systems Const Denies chills and Denies fever(s) Card Reports no additional complaints and Denies syncope Resp Denies cough GI Denies abdominal pain and Denies heartburn Reports as per HPI and Denies change in libido Neuro Denies syncope Psych Denies change in libido Endo Denies change in libido Physical Exam Const General: cooperative, healthy appearing, comfortable and no acute distress Orientation/consciousness: patient oriented x3 HEENT Face and sinus: Yes normal facial exam Mouth: moist mucous membranes Neck Neck: Yes normal visual inspection, Yes full ROM and Yes trachea midline Chest Chest palpation & inspection: normal inspection of the chest Resp Effort & Inspection: normal respiratory effort, able to speak in complete sentences and no respiratory distress GI Inspection: Yes normal to inspection Back/Spine/Pelvis Cervical Spine: normal cervical lordosis Thoracic/Lumbar Spine: thoracic and lumbar spine normal to inspection Skin General skin exam: no rashes or lesions noted Neuro General: patient oriented x3, gait normal, tone normal and moves all extremities Extrem General: Yes normal to inspection and Yes capillary refill normal Assessment & Plan Assessment & Plan (1) Prostate cancer: Code(s): C61 - Malignant neoplasm of prostate Category: Medical (2) Erectile dysfunction: Code(s): N52.9 - Male erectile dysfunction, unspecified Category: Medical Plan Trial tadalafil Two month follow-up PSA Orders: Orders Prostate Specific Antigen 2 Months E11.69 - Type 2 diabetes mellitus with other specified complication, N52.1 - Erectile dysfunction due to diseases classified elsewhere, C61 - Malignant neoplasm of prostate Medications: New tadalafil [facility] DR33 [id number] 10 mg PO DAILY 90 tabs 0RF sexual activity 90 days N52.01 - Erectile dysfunction due to arterial insufficiency Patient Instructions: This note is constructed using voice recognition software. While every effort has been made to ensure accuracy political organizer errors may have been included. Imaging studies, laboratory and physical exam results were discussed and reviewed in detail. No major barriers to patient understanding were identified. An opportunity to ask questions regarding the treatment plan was provided. All questions were answered. The patient expressed understanding and agreement with the above treatment plan. The patient is aware they should contact our office by phone for worsening of their current condition or the appearance of new urologic symptoms. Compliance is encouraged with any medications and followup testing that is ordered. It is a privilege to participate in the urologic care of your patient. If you have any questions or concerns regarding treatment for the above conditions, or other urologic issues, please do not hesitate to contact me. The office telephone contact is [phone]. Sincerely, Dr Mick Bernardo MD, [facility] - Urology Compassionate Specialist Care for the Genitourinary System Coding Level of Care Code Est Pt Level 4 (82516) Complex EM visit Add On G2211 Diagnoses Prostate cancer C61 Erectile dysfunction N52.9
== END 2024-07-28 12:18 | disposition home or self-care (01) ==
LOC: HO.HUSH 11:11
PROVIDERS: PCP Internal Medicine; Visit Provider Urology
DX: C61 Malignant neoplasm of prostate (principal); N52.9 Male erectile dysfunction, unspecified
CPT/HCPCS: 99214; G2211

== ENCOUNTER → 2024-07-28 11:11 | Outpatient (BNVA) | payer OTHER, SELFPAY | PROVIDERS: PCP Internal Medicine; Visit Provider Urology | DX: C61 Malignant neoplasm of prostate (principal); E11.69 Type 2 diabetes mellitus with other specified complication; N52.1 Erectile dysfunction due to diseases classified elsewhere | CPT/HCPCS: 99212 ==

== ENCOUNTER 2024-09-22 07:48 | Outpatient (AMB) | payer OTHER, SELFPAY ==
--- NOTE | 2024-09-22 07:49 | A.OFFVIS_ITS ---
Intake Visit Reasons: 2m/PSA(psa?) Intake Note: Pt presents to the office today as a telehealth visit for a 2 month follow up PSA. Allergies Beta-Blockers (Beta-Adrenergic Bloc [BETA-BLOCKERS (BETA-ADRENERGIC BLOC] Adverse Reaction (Unknown, Verified 09/22/24 07:49) STOPPED MY HEART HPI Comments Details: John is a pleasant male. He is a patient of Dr. Ayala. He is seen for the following urologic conditions - prostate cancer - erectile dysfunction Telemedicine Evaluation 15 min Consultation [facility] Video Lab work completed this morning but not resulted Marginal response to daily 10 mg tadalafil Will continue in add up to 40 mg on demand Daily tadalafil 10 mg with three-month follow-up and repeat PSA Prostate cancer - low-grade low volume Targeted biopsy [place] 3 + 3 Prostate MRI 1.5 cm posterior lateral right mid gland 05/12 underwent cryotherapy 02/22/24--John had MRI guided biopsies by Dr. Bernardo on 02/08/2024, targeted biopsies came back Darshan 6 --3+3; grade group 1. The patient is interested in targeted cryotherapy. Will schedule with Dr. Bernardo. Review of chart: 10/29/2023--John is on active surveillance for diagnosis prostate cancer low volume, grade group 1. I have reviewed PSA and MRI results with the patient. MRI-10/21/2023, the 1.7 cm lesion again noted posterior lateral zone right mid gland/apex seen previously 01/07/2022 was 1.5 cm no adenopathy, capsule or seminal vesicle invasion no suspicious osseous lesions. PSA 10/02/2023--5.5 ng/mL. Plan discussed repeat MRI guided prostate biopsy. 09/14/2023--John is a 53-year-old male who was previously diagnosed with prostate cancer in February 2022 by [facility]. He is transferring his care to [facility]. He states he has a family history of prostate cancer in his father. I reviewed urology notes from the [facility]. The patient had a PSA of 3.3 initially, the last PSA noted was 10/20/2022---3.8 ng/mL. The patient had an MRI of the prostate 01/07/2022. I have reviewed the report.-impression suspicious 1 cm lesion within right posterior medial peripheral zone at the mid gland apex - high clinically significant cancer is likely to be present, prostate volume 23 mL He had MRI fusion guided prostate biopsy on 03/13/2022: Pathology results reviewed--prostate left medial apex [place] score 6 3+ 6, grade group 1 tumor involves 3% of tissue, prostate target right posterior apex adenocarcinoma Darshan score 6 3+3 grade group 1, tumor involves 5% of tissue submitted. Prostate right medial base right medial mid right medial apex right lateral apex right lateral mid right lateral apex left medial base left medial mid core biopsies benign prostate tissue. Prostate, left lateral base left lateral mid left lateral apex--benign prostate tissue. He was placed on active surveillance. The patient states he did not have a follow-up scheduled. Last PSA noted was 10/20/2022 3.8 ng/mL--Plan discussed to repeat MRI and PSA. The patient was also evaluated for balanitis and phimosis and underwent circumcision on 12/01/2022-the pathology was documented to be consistent with patchy superficial lymphocytic inflammatory infiltrates with slight fibrosis. REPLACED BY [facility] Medical History Phimosis of penis Type 2 diabetes mellitus Sleep apnea Major depression Heart disease Anxiety Hx of essential hypertension Male circumcision Surgical History History of lumbar laminectomy Hx of arthroscopic knee surgery Hx of heart surgery Hx of cardiac cath Family History Father Family history of prostate cancer Mother Cancer Family history of prostate cancer Social History Are you a primary coronary care unit nurse to a significant other at home: No Do you presently have visiting nurse or other home services: No Alcohol intake: current Alcohol intake frequency: does not drink Patient Tobacco Use Status: Never used Tobacco Review of Systems Const All systems reviewed & are unremarkable except as noted in HPI and below Reports no additional complaints Resp Reports no additional complaints GI Reports no additional complaints Reports as per HPI Musc Reports no additional complaints Physical Exam Telemedicine evaluation Appropriate responses Regular breathing rate and rhythm HEENT Head: Yes normal to inspection Ears: hearing grossly normal bilaterally Eyes General: appearance normal, both eyes and all related structures Neck Neck: Yes normal visual inspection Chest Chest palpation & inspection: normal inspection of the chest Resp Effort & Inspection: normal respiratory effort and able to speak in complete sentences Telehealth Telehealth Telehealth Platform: [facility] Location of provider rendering services: practice address Location of patient: address on file Patient Identification confirmed using: Name, : Yes Telehealth method: video Patient verbally consented to treatment: Yes Patient verbally consented to billing insurance company: Yes Patient informed of any privacy concerns related to visit: Yes Minutes spent on Phone/Video with Pt.: 15 Assessment & Plan Assessment & Plan (1) Prostate cancer: Code(s): C61 - Malignant neoplasm of prostate Category: Medical (2) Erectile dysfunction associated with type 2 diabetes mellitus: Code(s): E11.69 - Type 2 diabetes mellitus with other specified complication; N52.1 - Erectile dysfunction due to diseases classified elsewhere Category: Medical Plan Daily 10mg tadalafil. Up to 40mg on demand. 3m f/u repeat PSA Orders: Orders Prostate Specific Antigen 3 Months C61 - Malignant neoplasm of prostate Medications: New tadalafil [facility] DR33 [id number] 20 mg PO ONCE 30 days PRN 30 tabs 0RF sexual activity E11.69 - Type 2 diabetes mellitus with other specified complication, N52.1 - Erectile dysfunction due to diseases classified elsewhere Refilled tadalafil [facility] DR33 [id number] 10 mg PO DAILY 90 days 90 tabs 0RF sexual activity N52.01 - Erectile dysfunction due to arterial insufficiency Patient Instructions: This note is constructed using voice recognition software. While every effort has been made to ensure accuracy commercial underwriter errors may have been included. Imaging studies, laboratory and physical exam results were discussed and reviewed in detail. No major barriers to patient understanding were identified. An opportunity to ask questions regarding the treatment plan was provided. All questions were answered. The patient expressed understanding and agreement with the above treatment plan. The patient is aware they should contact our office by phone for worsening of their current condition or the appearance of new urologic symptoms. Compliance is encouraged with any medications and followup testing that is ordered. It is a privilege to participate in the urologic care of your patient. If you have any questions or concerns regarding treatment for the above conditions, or other urologic issues, please do not hesitate to contact me. The office telephone contact is [phone]. Sincerely, Dr Mick Bernardo MD, [facility] - Urology Compassionate Specialist Care for the Genitourinary System Coding Level of Care Code Tele Est Pt Level 4 (07760) Complex EM visit Add On G2211 Diagnoses Prostate cancer C61 Erectile dysfunction associated with type 2 diabetes mellitus E11.69; N52.1
--- OUTSIDE RECORDS SUMMARY | 2024-09-22 07:51 | XMS_ITS | Encounter Summary ---
Author Organization [employer] Address [address] [place] [address] [address] [place] [address] Care Team Providers Care Manufacturing Project Manager Name Role Phone Unavailable Primary Care Provider Unavailabl e Reason for Visit * Reason Onset Date Comments Appointment 03/30/2024 Encounter Details Date Type Department Care Team ([facility] st Contact Info) Description 03/30/2024 Telephone [facility] [address], [place] [phone] Sammy Musa DDS [address], [place] [phone] Appointment Social History Tobacco Use Types Packs/Day Years Used Date Smoking Tobacco: Never Passive Smoke Exposure: Never Smokeless Tobacco: Never Alcohol Use Standard Drinks/Week Comments Never 0 (1 standard drink = 0.6 oz pur e alcohol) Sex and Gender Information Value Date Recorded Sex Assigned at Male 05/19/2022 10:35 AM EDT Legal Sex Male 10:35 AM EDT Gender Identity Male 06/05/2023 8:14 AM EST Sexual Orientation Choose not to disclose 2022 8:14 AM EST documented as of this encounter Plan of Treatment Not on file documented as of this encounter Visit Diagnoses Not on filedocumented in this encounter
--- OUTSIDE RECORDS SUMMARY | 2024-09-22 07:51 | XMS_ITS | Encounter Summary ---
Author Organization [employer] Address [address] [place] [address] [address] [place] [address] Care Team Providers Care Lathe Hand Name Role Phone Unavailable Primary Care Provider Unavailabl e Reason for Visit * Reason Comments Routine Cleaning Dental Exam Encounter Details Date Type Department Care Team ([facility] st Contact Info) Description 09/08/2024 10:00 AM EST Office Visit [facility] [address] [place] [address] Morales, Yasmin Missing teeth, acquired (Primary Dx); Dental plaque Social History Tobacco Use Types Packs/Day Years [...] AM EST documented as of this encounter Progress Notes * Sammy Musa DDS - 09/08/2024 10:00 AM EST Dental procedures in this visit D0120 - PERIODIC ORAL EVALUATION - ESTABLISHED PATIENT (Completed) Service provider: Sammy Musa DDS Billing provider: Sammy Musa DDS Patient ID: John Marks is a 54 y.o. male. Time Out: No data recorded Location: [facility] Tooth: Maxilla and Mandible Procedure: Exam and X-rays Verified the above with patient, physician assistant primary care, and provider. Confirmed via patient's chart, intraorally and by radiographs. Track Greaser: not applicable Chief Complaint Patient presents with Routine Cleaning Dental Exam Medical Hx: Vitals: There were no vitals taken for this visit. Past Medical History: Diagnosis Date Diabetes mellitus ([facility]) Heart disease Hypertension Prostate cancer ([facility]) Medications: Outpatient Encounter Medications as of 09/08/2024 Medication Sig Dispense Refill glipiZIDE (Glucotrol) 5 MG tablet Take 5 mg by mouth in the morning. losartan (Cozaar) 25 MG tablet Take 25 mg by mouth in the morning. losartan (Cozaar) 25 MG tablet Take 1 tablet by mouth. metoprolol succinate XL (Toprol-XL) 25 MG 24 hr tablet Take 1 tablet by mouth. Trulicity 1.5 MG/0.5ML solution auto-injector INJECT 0.5 ML (1 PEN) SUBCUTANEOUSLY EVERY WEEK X12 WEEKS - ROTATE INJECTION SITES clopidogrel (Plavix) 75 MG tablet Take 75 mg by mouth in the morning. (Patient not taking: Reportedon 09/08/2024) glipiZIDE (Glucotrol) 10 MG tablet Take 1 tablet by mouth. (Patient not taking: Reported on 09/08/2024) Trulicity 1.5 MG/0.5ML solution pen-injector INJECT 1 PEN SUBCUTANEOUSLY EVERY WEEK X4 WEEKS THEN CALL MD FOR DOSE ADJUSTMENT (Patient not taking: Reported on 09/08/2024) No facility-administered encounter medications on file as of 09/08/2024. Objective HPI Head and Neck Exam: Lymph Nodes, Lips, Palate, Buccal Mucosa, Floor of Mouth, Tongue, Tonsils, Alveolar Ridges, Oropharynx, Salivary Ducts, and Vestibules Details: Skin WNL OCS: negative Dental Exam As charted Missing teeth . Pt. Wants to try removable RPDs only as temporary solution while wait for implants (at other institution) . Reference tooth chart for additional findings. Oral Cancer Risk: Low Risk Oral Hygiene Instructions: Adair two times daily, modified mina technique, Floss daily, Electric toothbrush, Soft bristle toothbrush, Adair Tongue Caries Risk Assessment: Medium- one risk factor Assessment/Plan LAMBERTO X rays Medical clearance given (on 09-08-24 pre existing cardiac condition ) Prophy with medical consent Impression on the same day of cleaning visit. Per pt. request Roberto Patient tolerated procedure well, all questions answered and expressed understanding. Dismissed in good condition. NV: PROPHY & imp. When ins. approved Hadoop Administrator: Adelaida Camarena Dentist: Sammy Musa DDS * Yasmin Morales - 09/08/2024 10:00 AM EST Patient ID: John Marks is a 54 y.o. male. Time Out: No data recorded Location: [facility] Tooth: Patient not treated until medical clearance is received. Procedure: Not seen Verified the above with patient, physician assistant primary care, and provider. Confirmed via patient's chart, intraorally and by radiographs. Track Greaser: not applicable Medical Hx: Vitals: There were no vitals taken for this visit. Medications, Med Hx reviewed with patient and updated in chart. Treatment Provided Dental procedures in this visit D0120 - PERIODIC ORAL EVALUATION - ESTABLISHED PATIENT (Completed) Service provider: Sammy Musa DDS Billing provider: Sammy Musa DDS Instruments Used: None Fluoride: N/A Oral Cancer Screening: No lesions Head/Neck Exam: No Lesions Calculus: N/A Plaque: N/A Stain: N/A Bleeding: N/A Gingiva: N/A OH: Poor Perio Chart: Not Completed Oral hygiene instructions provided to patient including brushing technique and flossing. Recommendations: Adair two times daily, modified mina technique, Floss daily, Electric toothbrush, Soft bristle toothbrush, Adair Tongue, Anti-sensitivity toothpaste Recall Frequency: Patient to be seen upon medical clearance. NV: Upon medical clearance Hygienist: Yasmin Morales RDH documented in this encounter Miscellaneous Notes * Addendum Note - Yasmin Morales - 09/08/2024 10:00 AM ESTAddended by: YASMIN MORALES on: 09/08/2024 02:09 PM Modules accepted: Orders documented in this encounter Plan of Treatment Not on file documented as of this encounter Procedures Procedure Name Priority Date/Time Associated Diagnosis Comments PERIODIC ORAL EVALUATION - ESTABLISHED PATIENT Routine 09/08/2024 10:00 AM EST documented in this encounter Visit Diagnoses Diagnosis Missing teeth, acquired- Primary Dental plaque Accretions on teeth documented in this encounter
--- OUTSIDE RECORDS SUMMARY | 2024-09-22 07:51 | XMS_ITS | Clinical Summary ---
Author Organization [employer] Address [address] [place] [address] [address] [place] [address] Care Team Providers Care Rda Name Role Phone Unavailable Primary Care Provider Unavailabl e Allergies Active Allergy Reactions Criticality Noted Date Comments Beta Adrenergic Blockers 06/05/2023 Other reaction(s): High dose beta fercho needed to be resuscitated Medications clopidogrel (Plavix) 75 MG tablet Take 75 mg by mouth in the morning. 3 Active Trulicity 1.5 MG/0.5ML solution pen-injector INJECT 1 PEN SUBCUTANEOUSLY EVERY WEEK X4 WEEKS THEN CALL MD FOR DOSE ADJUSTMENT 3 Active glipiZIDE (Glucotrol) 10 MG tablet Take 1 tablet by mouth. 2 Active losartan (Cozaar) 25 MG tablet Take 25 mg by mouth in the morning. 3 Active metoprolol succinate XL (Toprol-XL) 25 MG 24 hr tablet Take 1 tablet by mouth. 2 Active Trulicity 1.5 MG/0.5ML solution auto-injector INJECT 0.5 ML (1 PEN) SUBCUTANEOUSLY EVERY WEEK X12 WEEKS - ROTATE INJECTION SITES 5 Active glipiZIDE (Glucotrol) 5 MG tablet Take 5 mg by mouth in the morning. 4 Active losartan (Cozaar) 25 MG tablet Take 1 tablet by mouth. 3 Active Active Problems Problem Noted Date Diagnosed Date Partially edentulous mandible 12/25/2023 Missing teeth, acquired 12/25/2023 Dental plaque 12/25/2023 Chronic periodontitis 10/08/2023 Dental caries on smooth surface limited to ename l 06/05/2023 Open fracture of tooth 06/05/2023 Encounters Date Type Department Care Team Description 09/08/2024 10:00 AM EST Office Visit [facility] [address] [place] [address] Yasmin Morales Missing teeth, acquired (Primary Dx); Dental plaque from Last 3 Months Social History Tobacco Use Types Packs/Day Years Used Date Smoking Tobacco: Never Passive Smoke Exposure: Never Smokeless Tobacco: Never Tobacco Cessation:Counseling Given: Not Answered Alcohol Use Standard Drinks/Week Comments Never 0 (1 standard drink = 0.6 oz pur e alcohol) Sex and Gender Information Value Date Recorded Sex Assigned at Male 05/19/2022 10:35 AM EDT Legal Sex Male 10:35 AM EDT Gender Identity Male 06/05/2023 8:14 AM EST Sexual Orientation Choose not to disclose 2022 8:14 AM EST Last Filed Vital Signs Vital Sign Reading Time Taken Comments Blood Pressure 128/78 03/08/2024 10:51 AM EDT Pulse 78 06/05/2023 11:27 AM EST Temperature - - Respiratory Rate - - Oxygen Saturation - - Inhaled Oxygen Concentration - - Weight - - Height - - Body Mass Index - - Plan of Treatment Health Maintenance Due Date Last Done Comments CT Colonography 1972 Colonoscopy 1972 Colorectal Cancer Screening 1972 Depression Screening 1972 FIT DNA/Cologuard 1972 FIT 1972 FOBT 1972 HIV Screening 1972 Lipid Panel 1972 SDOH Screening 1972 Sigmoidoscopy 1972 Alcohol/Substance Use Screening 1984 Family Planning (PISQ) 1987 Hepatitis C Screening 1990 Hepatitis A Vaccines (1 of 2 - Risk 2-dose series) 1991 Hepatitis B Vaccines (1 of 3 - 19+ 3-dose series) 1991 Pneumococcal Vaccine: 50+ Years (2 of 2 - PCV) 2022 04/21/2017 Zoster Vaccines (1 of 2) 2022 COVID-19 Vaccine ( season) 2024 08/07/2021, 10/24/2020, 10/03/2020 Dental Prophylaxis 09/09/2024 03/08/2024 Dental X-Ray: Bitewings 12/25/2024 12/25/2023, 03/17 Tobacco Screening 03/08/2025 03/08/2024 Dental Oral Exam 03/09/2025 09/08/2024, 01/2024, 03/17/2019 Dental X-Ray: Full Mouth 12/25/2026 12/25/2023, 02/18 DTaP/Tdap/Td Vaccines (2 - Td or Tdap) 04/21/2027 04/21/2017, 05/26/2005, 05/26/2005 RSV Patients and Patients Aged 60 years or older (1 - 1-dose 75+ series) 2047 Influenza Vaccine Completed 03/08/2024, , 05/15/2023, Additional history exists HIB Vaccines Aged Out No longer eligi ble based on patient's age to complete this topic HPV Vaccines Aged Out No longer eligi ble based on patient's age to complete this topic IPV Vaccines Aged Out No longer eligi ble based on patient's age to complete this topic Meningococcal Vaccine Aged Out No judy marilyn eligible based on patient's age to complete this topic RSV under 20 months Aged Out No longe r eligible based on patient's age to complete this topic Rotavirus Vaccines Aged Out No longer eligible based on patient's age to complete this topic Procedures Procedure Name Priority Date/Time Associated Diagnosis Comments PERIODIC ORAL EVALUATION - ESTABLISHED PATIENT Routine 09/08/2024 10:00 AM EST Full PROPHYLAXIS - ADULT Routine 024 11:00 AM EDT Dental plaque Dental calculus INTRAORAL - COMPLETE SERIES OF RADIOGRAPHIC IMAGES Routine 12/25/2023 11:00 AM EDT from Last 3 Months or Most Recently Relevant to Health Maintenance Insurance DENTAL - [facility]
== END 2024-09-22 10:16 | disposition home or self-care (01) ==
LOC: HO.HUSH 07:48
PROVIDERS: PCP Internal Medicine; Visit Provider Urology
DX: C61 Malignant neoplasm of prostate (principal); E11.69 Type 2 diabetes mellitus with other specified complication; N52.1 Erectile dysfunction due to diseases classified elsewhere
CPT/HCPCS: 99214; G2211

== ENCOUNTER 2024-12-22 09:51 | Outpatient (AMB) | payer OTHER, SELFPAY ==
--- NOTE | 2024-12-22 10:08 | MHC.OFFVIS ---
Intake Visit Reasons: 3m/PSA Intake Note: Patient is present for 3M/PSA Urology Medication:TADALAFIL Antibiotic Allergy:NONE Blood Thinner:NONE Personnel Director Required: No Allergies Beta-Blockers (Beta-Adrenergic Bloc [BETA-BLOCKERS (BETA-ADRENERGIC BLOC] Adverse Reaction (Unknown, Verified 12/22/24 10:09) STOPPED MY HEART HPI Comments Details: John is a pleasant male. He is a patient of Dr. Ayala. He is seen for the following urologic conditions - prostate cancer - erectile dysfunction Lab work completed this morning but not resulted Marginal response to daily 10 mg tadalafil Will continue in add up to 40 mg on demand Discussed PSA Medication refill PSA 10/11 2.5 Prostate cancer - low-grade low volume Targeted biopsy [place] 3 + 3 Prostate MRI 1.5 cm posterior lateral right mid gland 05/12 underwent cryotherapy 02/22/24--John had MRI guided biopsies by Dr. Bernardo on 02/08/2024, targeted biopsies came back D[place]han 6 --3+3; grade group 1. The patient is interested in targeted cryotherapy. Will schedule with Dr. Bernardo. Review of chart: 10/29/2023--John is on active surveillance for diagnosis prostate cancer low volume, grade group 1. I have reviewed PSA and MRI results with the patient. MRI-10/21/2023, the 1.7 cm lesion again noted posterior lateral zone right mid gland/apex seen previously 01/07/2022 was 1.5 cm no adenopathy, capsule or seminal vesicle invasion no suspicious osseous lesions. PSA 10/02/2023--5.5 ng/mL. Plan discussed repeat MRI guided prostate biopsy. 09/14/2023--John is a 53-year-old male who was previously diagnosed with prostate cancer in February 2022 by [facility] urology. He is transferring his care to [facility]. He states he has a family history of prostate cancer in his father. I reviewed urology notes from the [facility] urology. The patient had a PSA of 3.3 initially, the last PSA noted was 10/20/2022---3.8 ng/mL. The patient had an MRI of the prostate 01/07/2022. I have reviewed the report.-impression suspicious 1 cm lesion within right posterior medial peripheral zone at the mid gland apex - high clinically significant cancer is likely to be present, prostate volume 23 mL He had MRI fusion guided prostate biopsy on 03/13/2022: Pathology results reviewed--prostate left medial apex [place] score 6 3+ 6, grade group 1 tumor involves 3% of tissue, prostate target right posterior apex adenocarcinoma Darshan score 6 3+3 grade group 1, tumor involves 5% of tissue submitted. Prostate right medial base right medial mid right medial apex right lateral apex right lateral mid right lateral apex left medial base left medial mid core biopsies benign prostate tissue. Prostate, left lateral base left lateral mid left lateral apex--benign prostate tissue. He was placed on active surveillance. The patient states he did not have a follow-up scheduled. Last PSA noted was 10/20/2022 3.8 ng/mL--Plan discussed to repeat MRI and PSA. The patient was also evaluated for balanitis and phimosis and underwent circumcision on 12/01/2022-the pathology was documented to be consistent with patchy superficial lymphocytic inflammatory infiltrates with slight fibrosis. [facility] Medical History Phimosis of penis Type 2 diabetes mellitus Sleep apnea Major depression Heart disease Anxiety Hx of essential hypertension Male circumcision Surgical History History of lumbar laminectomy Hx of arthroscopic knee surgery Hx of heart surgery Hx of cardiac cath Family History Father Family history of prostate cancer Mother Cancer Family history of prostate cancer Social History Are you a primary healthcare risk control consultant to a significant other at home: No Do you presently have visiting nurse or other home services: No Alcohol intake: current Alcohol intake frequency: does not drink Patient Tobacco Use Status: Never used Tobacco Review of Systems Const Denies chills and Denies fever(s) Card Reports no additional complaints and Denies syncope Resp Denies cough GI Denies abdominal pain and Denies heartburn Reports as per HPI and Denies change in libido Neuro Denies syncope Psych Denies change in libido Endo Denies change in libido Physical Exam Const General: cooperative, healthy appearing, comfortable and no acute distress Orientation/consciousness: patient oriented x3 HEENT Face and sinus: Yes normal facial exam Mouth: moist mucous membranes Neck Neck: Yes normal visual inspection, Yes full ROM and Yes trachea midline Chest Chest palpation & inspection: normal inspection of the chest Resp Effort & Inspection: normal respiratory effort, able to speak in complete sentences and no respiratory distress GI Inspection: Yes normal to inspection Back/Spine/Pelvis Cervical Spine: normal cervical lordosis Thoracic/Lumbar Spine: thoracic and lumbar spine normal to inspection Skin General skin exam: no rashes or lesions noted Neuro General: patient oriented x3, gait normal, tone normal and moves all extremities Extrem General: Yes normal to inspection and Yes capillary refill normal Assessment & Plan Assessment & Plan (1) Prostate cancer: Code(s): C61 - Malignant neoplasm of prostate Category: Medical (2) Erectile dysfunction associated with type 2 diabetes mellitus: Code(s): E11.69 - Type 2 diabetes mellitus with other specified complication; N52.1 - Erectile dysfunction due to diseases classified elsewhere Category: Medical Plan: .E Plan 1. Prostate Cancer Follow-up with PSA testing in four months. Repeat MRI in twelve months to assess prostate cancer status. Discussed possible biopsy post-MRI to confirm remission. 2. Erectile Dysfunction Prescribed tadalafil 10 mg daily and up to 40 mg on demand. Refill prescription to ensure supply. Monitor effectiveness and adherence to regimen. Discussion Notes During this follow-up consultation, I reviewed the status of the patient's prostate cancer. The PSA level is at 2.5, indicating effective cryotherapy treatment, which has likely eradicated cancerous tissues. The plan is to continue surveillance with regular PSA testing every four months, conducting a thorough evaluation through MRI after twelve months, with the possibility of a biopsy if needed. The options, including risks and benefits, were discussed with the patient, emphasizing the absence of alternative remedies such as urine consumption, which holds no scientific merit. We also addressed erectile dysfunction, confirming the current medication regimen and rectifying prescription supply issues. The patient expressed understanding of the treatment protocols and plans. Patient Instructions - Continue taking tadalafil 10 mg daily; take up to 40 mg on demand for erectile dysfunction. - Expect a new prescription at your pharmacy for adequate medication supply. - Return for PSA testing in four months; MRI scheduled for twelve months to monitor prostate cancer status. - Report any new or worsening symptoms promptly. Follow up with teleconsultation as scheduled. Orders: Orders Prostate Specific Antigen 4 Months C61 - Malignant neoplasm of prostate Patient Instructions: This note is constructed using voice recognition software. While every effort has been made to ensure accuracy historical site guide errors may have been included. Imaging studies, laboratory and physical exam results were discussed and reviewed in detail. No major barriers to patient understanding were identified. An opportunity to ask questions regarding the treatment plan was provided. All questions were answered. The patient expressed understanding and agreement with the above treatment plan. The patient is aware they should contact our office by phone for worsening of their current condition or the appearance of new urologic symptoms. Compliance is encouraged with any medications and followup testing that is ordered. It is a privilege to participate in the urologic care of your patient. If you have any questions or concerns regarding treatment for the above conditions, or other urologic issues, please do not hesitate to contact me. The office telephone contact is [phone]. Sincerely, Dr Mick Bernardo MD, [facility] - Urology Compassionate Specialist Care for the Genitourinary System Coding Level of Care Code Est Pt Level 3 (17680) Complex EM visit Add On G2211 Diagnoses Prostate cancer C61 Erectile dysfunction associated with type 2 diabetes mellitus E11.69; N52.1
--- OUTSIDE RECORDS SUMMARY | 2024-12-22 11:09 | XMS_ITS | Encounter Summary ---
Author Organization [email or web address] Address [address] [place] [address] [address] [place] [address] Care Team Providers Care Latent Print Examiner Name Role Phone Unavailable Primary Care Provider Unavailabl e Reason for Visit * Reason Onset Date Comments Appointment 03/30/2024 Encounter Details Date Type Department Care Team (Late Contact Info) Description 03/30/2024 Telephone [facility] ADULT DENT[facility] [address] [place] [address] Sammy Musa DDS [address] [place] [address] Appointment Social History Tobacco Use Types Packs/Day [...] as of this encounter Plan of Treatment Upcoming Encounters Date Type Department Care Team (Late st Contact Info) Description 01/09/2025 10:00 AM EDT Office Visit [facility] [address] [place] [address] Sammy Musa DDS [address] [place] [address] 07/05/2025 1:00 PM EST Office Visit [facility] [address] [place] [address] Morales, Yasmin documented as of this encounter Visit Diagnoses Not on filedocumented in this encounter
== END 2024-12-22 10:51 | disposition home or self-care (01) ==
LOC: HO.HUSH 09:51
PROVIDERS: PCP Internal Medicine; Visit Provider Urology
DX: C61 Malignant neoplasm of prostate (principal); E11.69 Type 2 diabetes mellitus with other specified complication; N52.1 Erectile dysfunction due to diseases classified elsewhere
CPT/HCPCS: 99213; G2211

== ENCOUNTER → 2024-12-22 09:51 | Outpatient (BNVA) | payer OTHER, SELFPAY | PROVIDERS: PCP Internal Medicine; Visit Provider Urology | DX: E11.69 Type 2 diabetes mellitus with other specified complication (principal); C61 Malignant neoplasm of prostate; N52.1 Erectile dysfunction due to diseases classified elsewhere | CPT/HCPCS: 99212 ==

== ENCOUNTER 2025-05-02 11:53 | Outpatient (AMB) | payer OTHER, SELFPAY ==
--- NOTE | 2025-05-02 11:57 | A.OFFVIS_ITS ---
Intake Visit Reasons: 4m/PSA Intake Note: Patient is present for 4M Telehealth follow up Urology Medication:TADALAFIL Antibiotic Allergy:NONE Blood Thinner:NONE Labs done 04/11/25: PSA 5.6 Imagin04/28/25 MRI Construction Carpenter Required: No Accompanied by: Self / Same As Patient Allergies Beta-Blockers (Beta-Adrenergic Bloc (BETA-BLOCKERS (BETA-ADRENERGIC BLOC) Adverse Reaction (Unknown, Verified 05/02/25 11:58) STOPPED MY HEART HPI Comments Details: John is a pleasant male. He is a patient of Dr. Ayala. He is seen for the following urologic conditions - prostate cancer - erectile dysfunction Telemedicine Evaluation 15 min Consultation [employer] Christy Video PSA - 10/11 2.5, 04/13 5.6 Discussed timing for repeat targeted biopsy Prostate cancer - low-grade low volume Targeted biopsy [place] 3 + 3 Prostate MRI 1.5 cm posterior lateral right mid gland 05/12 underwent cryotherapy 02/22/24--John had MRI guided biopsies by Dr. Bernardo on 02/08/2024, targeted biopsies came back [place] 6 --3+3; grade group 1. Review of chart: 10/29/2023--John is on active surveillance for diagnosis prostate cancer low volume, grade group 1. I have reviewed PSA and MRI results with the patient. MRI-10/21/2023, the 1.7 cm lesion again noted posterior lateral zone right mid gland/apex seen previously 01/07/2022 was 1.5 cm no adenopathy, capsule or seminal vesicle invasion no suspicious osseous lesions. PSA 10/02/2023--5.5 ng/mL. Plan discussed repeat MRI guided prostate biopsy. 09/14/2023--John is a 53-year-old male who was previously diagnosed with prostate cancer in February 2022 by [facility] urology. He is transferring his care to [facility]. He states he has a family history of prostate cancer in his father. I reviewed urology notes from the [facility] urology. The patient had a PSA of 3.3 initially, the last PSA noted was 10/20/2022---3.8 ng/mL. The patient had an MRI of the prostate 01/07/2022. I have reviewed the report.-impression suspicious 1 cm lesion within right posterior medial peripheral zone at the mid gland apex - high clinically significant cancer is likely to be present, prostate volume 23 mL He had MRI fusion guided prostate biopsy on 03/13/2022: Pathology results reviewed--prostate left medial apex [place] score 6 3+ 6, grade group 1 tumor involves 3% of tissue, prostate target right posterior apex adenocarcinoma Darshan score 6 3+3 grade group 1, tumor involves 5% of tissue submitted. Prostate right medial base right medial mid right medial apex right lateral apex right lateral mid right lateral apex left medial base left medial mid core biopsies benign prostate tissue. Prostate, left lateral base left lateral mid left lateral apex--benign prostate tissue. He was placed on active surveillance. The patient states he did not have a follow-up scheduled. Last PSA noted was 10/20/2022 3.8 ng/mL--Plan discussed to repeat MRI and PSA. The patient was also evaluated for balanitis and phimosis and underwent circumcision on 12/01/2022-the pathology was documented to be consistent with patchy superficial lymphocytic inflammatory infiltrates with slight fibrosis. [facility] Medical History Phimosis of penis Type 2 diabetes mellitus Sleep apnea Major depression Heart disease Anxiety Hx of essential hypertension Male circumcision Surgical History History of lumbar laminectomy Hx of arthroscopic knee surgery Hx of heart surgery Hx of cardiac cath Family History Father Family history of prostate cancer Mother Cancer Family history of prostate cancer Social History Are you a primary post acute care registered nurse to a significant other at home: No Do you presently have visiting nurse or other home services: No Alcohol intake: current Alcohol intake frequency: does not drink Patient Tobacco Use Status: Never used Tobacco Review of Systems Const All systems reviewed & are unremarkable except as noted in HPI and below Reports no additional complaints Resp Reports no additional complaints GI Reports no additional complaints Reports as per HPI Musc Reports no additional complaints Physical Exam Telemedicine evaluation Appropriate responses Regular breathing rate and rhythm HEENT Head: Yes normal to inspection Ears: hearing grossly normal bilaterally Eyes General: appearance normal, both eyes and all related structures Neck Neck: Yes normal visual inspection Chest Chest palpation & inspection: normal inspection of the chest Resp Effort & Inspection: normal respiratory effort and able to speak in complete sentences Telehealth Telehealth Telehealth Platform: [employer] Location of provider rendering services: practice address Location of patient: address on file Patient Identification confirmed using: Name, : Yes Telehealth method: video Patient verbally consented to treatment: Yes Patient verbally consented to billing insurance company: Yes Patient informed of any privacy concerns related to visit: Yes Minutes spent on Phone/Video with Pt.: 15 Assessment & Plan Assessment & Plan (1) Erectile dysfunction associated with type 2 diabetes mellitus: Code(s): E11.69 - Type 2 diabetes mellitus with other specified complication; N52.1 - Erectile dysfunction due to diseases classified elsewhere Category: Medical (2) Prostate cancer: Code(s): C61 - Malignant neoplasm of prostate Category: Medical Plan Risks, benefits and alternatives to therapy were discussed. These include but are not limited to infection, bleeding, damage to local organs and tissues, need for further interventions. Anesthetic risks regarding cardiac arrhythmia, blood clots, and potential mortality were discussed. The patient understands the typical recovery time and the outpatient nature of the procedure. After consideration of these risks the patient gives full informed consent and they wish to move ahead with the procedure. - targeted prostate biopsy Medications: Refilled tadalafil [facility] Group [facility] [address] [id number] 10 mg PO DAILY 90 tabs 1RF sexual activity 90 days N52.01 - Erectile dysfunction due to arterial insufficiency tadalafil [facility] Group [facility] [address] [id number] 20 mg PO ONCE PRN 30 tabs 2RF sexual activity 30 days E11.69 - Type 2 diabetes mellitus with other specified complication, N52.1 - Erectile dysfunction due to diseases classified elsewhere Patient Instructions: This note is constructed using voice recognition software. While every effort has been made to ensure accuracy ben day artist errors may have been included. Imaging studies, laboratory and physical exam results were discussed and reviewed in detail. No major barriers to patient understanding were identified. An opportunity to ask questions regarding the treatment plan was provided. All questions were answered. The patient expressed understanding and agreement with the above treatment plan. The patient is aware they should contact our office by phone for worsening of their current condition or the appearance of new urologic symptoms. Compliance is encouraged with any medications and followup testing that is ordered. It is a privilege to participate in the urologic care of your patient. If you have any questions or concerns regarding treatment for the above conditions, or other urologic issues, please do not hesitate to contact me. The office telephone contact is [phone]. Sincerely, Dr Mick Bernardo MD, [facility] - Urology Compassionate Specialist Care for the Genitourinary System Coding Level of Care Code Tele Est Pt Level 3 (25652) Complex EM visit Add On G2211 Diagnoses Erectile dysfunction associated with type 2 diabetes mellitus E11.69; N52.1 Prostate cancer C61
== END 2025-05-02 12:45 | disposition home or self-care (01) ==
PROVIDERS: PCP Internal Medicine; Visit Provider Urology
DX: E11.69 Type 2 diabetes mellitus with other specified complication (principal); N52.1 Erectile dysfunction due to diseases classified elsewhere; C61 Malignant neoplasm of prostate
CPT/HCPCS: 99213; G2211